=== PATIENT | female | born 1940 | race Caucasian/White ===

== ENCOUNTER 2017-03-02 12:10 | Emergency (ER) | payer MEDICARE, BC ==
--- NOTE | 2017-03-02 12:18 | EDM.PDOC ---
ED HPI GENERAL MEDICAL PROBLEM - General Stated Complaint: WEAK/TINGLY ARMS Time Seen by Provider: 03/02/17 12:13 Source of Information: Reports: Patient History Limitations: Reports: No Limitations - History of Present Illness INITIAL COMMENTS - FREE TEXT/NARRATIVE: History of present illness: []Patient was eating lunch when she felt sudden weight funny with heavy arms tingling and just not right in her head. He denies any headache, nausea, vomiting, chest pain, shortness of breath, confusion or difficulty speaking. Patient has monovision and just got a new pair of glasses. Patient is anxious and worried because both of her parents of strokes. She is healthy and currently not taking any medications. Review of systems: As per history of present illness and below otherwise all systems reviewed and negative. Past medical history: As per history of present illness and as reviewed below otherwise noncontributory. Surgical history: As per history of present illness and as reviewed below otherwise noncontributory. Social history: No reported history of drug or alcohol abuse. Family history: As per history of present illness and as reviewed below otherwise noncontributory. Physical exam: General: Well developed, well nourished in NAD HEENT: Atraumatic, normocephalic, pupils reactive, negative for conjunctival pallor or scleral icterus, mucous membranes moist, throat clear, neck supple, nontender, trachea midline. Lungs: Clear to auscultation, breath sounds equal bilaterally, chest nontender. Heart: S1S2, regular, negative for clicks, rubs, or JVD. Abdomen: Soft, nondistended, nontender. Negative for masses or hepatosplenomegaly. Negative for costovertebral tenderness. Pelvis: Stable nontender. Genitourinary: Deferred. Rectal: Deferred. Extremities: Atraumatic, negative for cords or calf pain. Neurovascular unremarkable. Neuro: Awake, alert, oriented. Cranial nerves II through XII unremarkable. Cerebellum unremarkable. Motor and sensory unremarkable throughout. Exam nonfocal. Diagnostics: []CT head negative for acute bleed or stroke, there are vascular changes systems small vessel disease labs are normal including troponin. Patient had EKG with 1 PVC on it without acute ischemic changes patient states she occasionally feels palpitations but they do not bother her. Therapeutics: []Patient initially was given half milligram of Ativan for anxiety with improvement Impression: []Dizziness Plan: []Follow-up primary care physician return if symptoms worsen or change meclizine for symptoms Definitive disposition and diagnosis as appropriate pending reevaluation and review of above. - Related Data Allergies Allergy/AdvReac Type Severity Reaction Status Date / Time sulfamethoxazole Allergy Anaphylactic Verified 03/02/17 12:18 [From Bactrim] Shock trimethoprim [From Bactrim] Allergy Anaphylactic Verified 03/02/17 12:18 Shock Home Meds: Home Meds Meclizine [Antivert] 25 mg PO TID PRN #20 tab.chew 03/02/17 [Rx] ED ROS GENERAL - Review of Systems Review Of Systems: See Below (See history of present illness) ED EXAM, NEURO - Physical Exam Exam: See Below (See history of present illness) Course - Vital Signs Last Recorded V/S: Last Vital Signs Temp 36.6 C 03/02/17 12:18 Pulse 73 03/02/17 14:08 Resp 16 03/02/17 14:08 BP 165/76 H 03/02/17 14:08 Pulse Ox 99 03/02/17 14:08 - Orders/Labs/Meds Orders: Active Orders 24 hr Category Date Time Status EKG Documentation Completion [RC] STAT Care 03/02/17 12:18 Active Chest 1V Frontal [CR] Stat Exams 03/02/17 12:18 Taken Head wo Cont [CT] Stat Exams 03/02/17 13:20 Taken Saline Lock Insert [OM.PC] Stat Oth 03/02/17 12:18 Ordered Labs: Laboratory Tests 03/02/17 03/02/17 03/02/17 Range/Units 12:19 12:31 12:31 WBC 7.20 (4.0-11.0) K/uL RBC 4.73 (4.30-5.90) M/uL Hgb 13.9 (12.0-16.0) g/dL Hct 41.4 (36.0-46.0) % MCV 87.5 (80.0-98.0) fL MCH 29.4 (27.0-32.0) pg MCHC 33.6 (31.0-37.0) g/dL RDW Std Deviation 45.1 (28.0-62.0) fl RDW Coeff of Selene 14 (11.0-15.0) % Plt Count 249 (150-400) K/uL MPV 10.50 (7.40-12.00) fL Neut % (Auto) 46.2 L (48.0-80.0) % Lymph % (Auto) 42.2 H (16.0-40.0) % Wilcox % (Auto) 8.9 (0.0-15.0) % Eos % (Auto) 1.9 (0.0-7.0) % Baso % (Auto) 0.8 (0.0-1.5) % Neut # (Auto) 3.3 (1.4-5.7) K/uL Lymph # (Auto) 3.0 H (0.6-2.4) K/uL Wilcox # (Auto) 0.6 (0.0-0.8) K/uL Eos # (Auto) 0.1 (0.0-0.7) K/uL Baso # (Auto) 0.1 (0.0-0.1) K/uL Nucleated RBC % 0.0 /100WBC Nucleated RBCs # 0 K/uL Sodium 141 (136-146) mmol/L Potassium 3.7 (3.5-5.1) mmol/L Chloride 104 (98-110) mmol/L Carbon Dioxide 28 (21-31) mmol/L BUN 14 (6.0-23.0) mg/dL Creatinine 0.8 (0.6-1.5) mg/dL Est Cr Clr Drug Dosing 58.46 mL/min Estimated GFR (MDRD) > 60.0 ml/min Glucose 92 (60-110) mg/dL POC Glucose 109 (60-110) mg/dL Calcium 10.0 (8.8-10.8) mg/dL Total Bilirubin 0.4 (0.1-1.5) mg/dL AST 19 (5-40) IU/L ALT 16 (8-54) IU/L Alkaline Phosphatase 92 (40-150) Troponin I (0.0-0.29) NG/ML Total Protein 7.0 (6.0-8.0) g/dL Albumin 4.1 (3.4-4.8) g/dL Globulin 2.9 (2.0-3.5) g/dL Albumin/Globulin Ratio 1.4 (1.3-2.8) Urine Color Urine Appearance Urine pH (5.0-8.0) Ur Specific [place] (1.001-1.035) Urine Protein (NEGATIVE) mg/dL Urine Glucose (UA) (NEGATIVE) mg/dL Urine Ketones (NEGATIVE) mg/dL Urine Occult Blood (NEGATIVE) Urine Nitrite (NEGATIVE) Urine Bilirubin (NEGATIVE) Urine Urobilinogen (<2.0) EU/dL Ur Leukocyte Esterase (NEGATIVE) Urine RBC (0-2/HPF) Urine WBC (0-5/HPF) Ur Epithelial Cells (NONE-FEW) Urine Bacteria (NEGATIVE) 03/02/17 03/02/17 Range/Units 12:31 13:10 WBC (4.0-11.0) K/uL RBC (4.30-5.90) M/uL Hgb (12.0-16.0) g/dL Hct (36.0-46.0) % MCV (80.0-98.0) fL MCH (27.0-32.0) pg MCHC (31.0-37.0) g/dL RDW Std Deviation (28.0-62.0) fl RDW Coeff of Selene (11.0-15.0) % Plt Count (150-400) K/uL MPV (7.40-12.00) fL Neut % (Auto) (48.0-80.0) % Lymph % (Auto) (16.0-40.0) % Wilcox % (Auto) (0.0-15.0) % Eos % (Auto) (0.0-7.0) % Baso % (Auto) (0.0-1.5) % Neut # (Auto) (1.4-5.7) K/uL Lymph # (Auto) (0.6-2.4) K/uL Wilcox # (Auto) (0.0-0.8) K/uL Eos # (Auto) (0.0-0.7) K/uL Baso # (Auto) (0.0-0.1) K/uL Nucleated RBC % /100WBC Nucleated RBCs # K/uL Sodium (136-146) mmol/L Potassium (3.5-5.1) mmol/L Chloride (98-110) mmol/L Carbon Dioxide (21-31) mmol/L BUN (6.0-23.0) mg/dL Creatinine (0.6-1.5) mg/dL Est Cr Clr Drug Dosing mL/min Estimated GFR (MDRD) ml/min Glucose (60-110) mg/dL POC Glucose (60-110) mg/dL Calcium (8.8-10.8) mg/dL Total Bilirubin (0.1-1.5) mg/dL AST (5-40) IU/L ALT (8-54) IU/L Alkaline Phosphatase (40-150) Troponin I < 0.10 (0.0-0.29) NG/ML Total Protein (6.0-8.0) g/dL Albumin (3.4-4.8) g/dL Globulin (2.0-3.5) g/dL Albumin/Globulin Ratio (1.3-2.8) Urine Color YELLOW Urine Appearance CLEAR Urine pH 6.5 (5.0-8.0) Ur Specific [place] <= 1.005 (1.001-1.035) Urine Protein NEGATIVE (NEGATIVE) mg/dL Urine Glucose (UA) NEGATIVE (NEGATIVE) mg/dL Urine Ketones NEGATIVE (NEGATIVE) mg/dL Urine Occult Blood TRACE-LYSED (NEGATIVE) Urine Nitrite NEGATIVE (NEGATIVE) Urine Bilirubin NEGATIVE (NEGATIVE) Urine Urobilinogen 0.2 (<2.0) EU/dL Ur Leukocyte Esterase NEGATIVE (NEGATIVE) Urine RBC 0-2 (0-2/HPF) Urine WBC 0-1 (0-5/HPF) Ur Epithelial Cells FEW (NONE-FEW) Urine Bacteria FEW (NEGATIVE) Meds: Medications Discontinued Medications Generic Name Dose Route Start Last Admin Trade Name Coreen PRN Reason Stop Dose Admin Lorazepam 0.5 mg 03/02/17 12:21 03/02/17 12:34 Ativan PO 03/02/17 12:22 0.5 mg ONETIME ONE Administration Departure - Departure Time of Disposition: 14:12 Disposition: Home, Self-Care 01 Condition: Good Clinical Impression: Dizziness - Discharge Information Prescriptions: Meclizine [Antivert] 25 mg PO TID PRN #20 tab.chew PRN Reason: Dizziness Instructions: Dizziness, [id number] Referrals: Asher Garg MD [Primary Care Provider] - Forms: ED Department Discharge Additional Instructions: The following information is given to patients seen in the emergency department who are being discharged to home. This information is to outline your options for follow-up care. We provide all patients seen in our emergency department with a follow-up referral. The need for follow-up, as well as the timing and circumstances, are variable depending upon the specifics of your emergency department visit. If you don't have a primary care physician on staff, we will provide you with a referral. We always advise you to contact your personal physician following an emergency department visit to inform them of the circumstance of the visit and for follow-up with them and/or the need for any referrals to a consulting specialist. The emergency department will also refer you to a specialist when appropriate. This referral assures that you have the opportunity for follow-up care with a specialist. All of these measure are taken in an effort to provide you with optimal care, which includes your follow-up. Under all circumstances we always encourage you to contact your private physician who remains a resource for coordinating your care. When calling for follow-up care, please make the office aware that this follow-up is from your recent emergency room visit. If for any reason you are refused follow-up, please contact the [facility] Emergency Department at and asked to speak to the emergency department charge nurse. Meclizine 25 mg 3 times a day for dizziness as needed [facility] [address] [place] [id number] - My Orders Last 24 Hours: My Active Orders 03/02/17 12:18 EKG Documentation Completion [RC] STAT Chest 1V Frontal [CR] Stat Saline Lock Insert [OM.PC] Stat 03/02/17 13:20 Head wo Cont [CT] Stat - Assessment/Plan Last 24 Hours: My Active Orders 03/02/17 12:18 EKG Documentation Completion [RC] STAT Chest 1V Frontal [CR] Stat Saline Lock Insert [OM.PC] Stat 03/02/17 13:20 Head wo Cont [CT] Stat
[2017-03-02] MEDS ORDERED: LORazepam 0.5 MG Tab PO ONE (12:21)
[2017-03-02 13:04] LABS: CHLORIDE,CL 104 mmol/L (98-110); SODIUM,NA 141 mmol/L (136-146)
[2017-03-02 14:42] VITALS: BP 146/75
--- NOTE | 2017-03-03 14:59 | CR ---
EXAM DATE: 03/02/17 PATIENT'S AGE: 77 Patient: ANITA TAVARES Facility: [place], [place] Site . Site : 1940 Study: XRay Chest [id number]/23/2017 1:02:12 PM Ordering Physician: Jb Osorio Final Report: HISTORY: Shortness of breath, pain and dizziness. Findings: AP view of the chest is provided. The lungs are normally expanded and clear. No pleural effusion or pneumothorax is seen. Cardiac silhouette size is within normal limits. Impression: Clear lungs. Dictated by Ben Alarcon MD @ Mar 02 2017 1:26PM (Electronic Signature) Report Signed by Proxy. SHAUN
--- NOTE | 2017-03-03 15:01 | CT ---
EXAM DATE: 03/02/17 PATIENT'S AGE: 77 Patient: ANITA TAVARES Facility: [place], [place] Site . Site : 1940 Study: CT Head WO CONT [id number]/[id number]/2017 1:41:55 PM Ordering Physician: Jb Osorio Final Report: INDICATION: 77-year-old female with dizziness. Weakness. TECHNIQUE: Contiguous helical scans foramen magnum to vertex were obtained without contrast and axial as well as coronal and sagittal re-formatted images are reviewed. FINDINGS: The ventricles are normal in size and shape. There is no acute hemorrhage. There is no mass effect. There are nearly symmetrical areas of areas of diminished density within the bilateral cerebral white matter most prominent in the bilateral frontal lobes. These changes are likely due to microvascular ischemia. There is preservation of the wilder-white interface without evidence of cortical based dominant arterial distribution infarction. No posterior fossa hemorrhage or mass effect. Bony calvarium unremarkable. IMPRESSION: 1. No acute hemorrhage or mass effect. 2. Diminished density within bilateral frontal lobe white matter likely relates to chronic microvascular ischemic change. Dictated by Jorge Hernandez MD @ 03/02/2017 2:05:27 PM Dictated by: Jorge Hernandez MD @ 03/02/2017 14:05:38 (Electronic Signature) Report Signed by Proxy. SHAUN
== END 2017-03-02 14:37 | disposition home or self-care (01) ==
LOC: MW.ED 12:10
DX: R42 Dizziness and giddiness (principal); Z88.2 Allergy status to sulfonamides; Z88.8 Allergy status to other drugs, medicaments and biological substances
CPT/HCPCS: 36415; 70450; 71010; 80053; 81001; 82962; 84484; 85025; 93005; 99285; A9270; 99283

== ENCOUNTER 2025-01-13 17:10 | Emergency (ER) | payer MEDICARE, BC ==
[2025-01-13 18:14] LABS: APPEARANCE,URINE SLT CLOUDY; BILIRUBIN,URINE NEGATIVE (NEGATIVE); COLOR,URINE YELLOW; GLUCOSE,URINE NEGATIVE (NEGATIVE); KETONES,URINE TRACE mg/dL (NEGATIVE); LEUKOCYTE ESTERASE,URINE SMALL (NEGATIVE); NITRITE,URINE NEGATIVE (NEGATIVE); OCCULT BLOOD,URINE MODERATE (NEGATIVE); PH,URINE 6.5 (5.0-8.0); PROTEIN,URINE NEGATIVE (NEGATIVE); UROBILINOGEN,URINE 0.2 EU/dL (<2.0)
[2025-01-13 18:26] LABS: BACTERIA,URINE RARE (NEGATIVE); EPITHELIAL CELLS,URINE RARE (NONE-FEW); WBC,URINE 15-20 (0-5/HPF)
[2025-01-13] MEDS: Nitrofurantoin Monohydrate/Macrocrystalline 100 MG Cap PO ONE (19:20)
[2025-01-13] MEDS: Phenazopyridine 200 MG Tab PO ONE (19:20)
[2025-01-13 19:25] VITALS: BP 172/72; PULSE 60
== END 2025-01-13 19:23 | disposition home or self-care (01) ==
LOC: MW.ED 17:10
DX: N39.0 Urinary tract infection, site not specified (principal); Z75.3 Unavailability and inaccessibility of health-care facilities; Z88.2 Allergy status to sulfonamides; Z88.8 Allergy status to other drugs, medicaments and biological substances; Z79.899 Other long term (current) drug therapy
CPT/HCPCS: 81001; 87086; 99283; A9270

== ENCOUNTER 2025-04-29 08:53 | Emergency (ER) | payer MEDICARE, BC ==
[2025-04-29] MEDS ORDERED: Sodium Chloride 0.9% 10 ML Syringe FLUSH PRN (09:30)
[2025-04-29] MEDS ORDERED: Sodium Chloride 0.9% 2.5 ML Syringe FLUSH PRN (09:30)
[2025-04-29 09:56] LABS: APPEARANCE,URINE CLEAR; GLUCOSE,URINE NEGATIVE (NEGATIVE); OCCULT BLOOD,URINE NEGATIVE (NEGATIVE)
[2025-04-29 10:01] LABS: BASOPHILS ABSOLUTE AUTO 0.12 K/uL (0.00-0.20); BASOPHILS PERCENT AUTO 1.3 % (0.0-1.0); EOSINOPHILS ABSOLUTE AUTO 0.35 K/uL (0.00-0.45); EOSINOPHILS PERCENT AUTO 3.7 % (0.0-6.0); IMMATURE GRAN ABSOLUTE AUTO 0.04 K/uL (0.00-0.05); IMMATURE GRAN PERCENT AUTO 0.4 % (0.0-0.4); LYMPHOCYTES ABSOLUTE AUTO 2.72 K/uL (1.00-4.80); LYMPHOCYTES PERCENT AUTO 28.9 % (24.0-44.0); MEAN PLATELET VOLUME 10.3 fL (9.4-12.3); MONOCYTES ABSOLUTE AUTO 0.77 K/uL (0.00-0.80); MONOCYTES PERCENT AUTO 8.2 % (0.0-8.0); NEUTROPHILS ABSOLUTE AUTO 5.42 K/uL (1.80-7.70); NEUTROPHILS PERCENT AUTO 57.5 % (41.0-71.0); NRBC ABSOLUTE 0.00 K/uL (0.00-0.02); NRBC PERCENT 0.0 /100WBC (0.0-0.2); PLATELET COUNT,PLT 221 K/uL (150-400); RED BLOOD CELL COUNT 4.60 M/uL (4.10-5.30); WHITE BLOOD CELL COUNT,WBC 9.42 K/uL (3.9-11.3)
[2025-04-29] MEDS: hydrALAZINE 20 MG/ML SDV IVPUSH ONE (10:32)
[2025-04-29 10:41] LABS: A/G RATIO 0.9 (0.9-1.6); ALANINE AMINOTRANSFERASE,ALT 20.0 IU/L (14-63); ASPARTATE AMNIOTRANSFERASE,AST 27.0 IU/L (15-37); BILIRUBIN TOTAL 0.6 mg/dL (0.2-1.0); BLOOD UREA NITROGEN,BUN 13.0 mg/dL (7.0-18.0); CARBON DIOXIDE,CO2 28.2 mmol/L (21.0-32.0); CHLORIDE,CL 104.0 mmol/L (98-107); CREATININE 1.0 mg/dL (0.6-1.0); EST CRCL DRUG DOSING (CG) 40.74 mL/min; ESTIMATED GFR 55.0 mL/min (>60); GLUCOSE RANDOM 84.0 mg/dL (74-106); POTASSIUM,K 3.8 mmol/L (3.5-5.1); PROTEIN TOTAL,TP 7.6 g/dL (6.4-8.2); SODIUM,NA 142.0 mmol/L (136-145)
[2025-04-29 11:20] VITALS: BP 135/58; PULSE 67
== END 2025-04-29 11:20 | disposition home or self-care (01) ==
LOC: MW.ED 08:53
DX: I10 Essential (primary) hypertension (principal); Z79.899 Other long term (current) drug therapy; Z88.2 Allergy status to sulfonamides
CPT/HCPCS: 36415; 80053; 81003; 83735; 85025; 93005; 96374; 99283; J0360